=== PATIENT | female | born 1965 | race Caucasian/White ===

== ENCOUNTER 2019-07-06 05:46 | Day surgery (SDC) | payer MEDICAID ==
[2019-07-06] MEDS ORDERED: Midazolam 1 MG/ML 2 ML SDV IV ONE ×6 (05:47→07:00)
[2019-07-06] MEDS ORDERED: fentaNYL 100 MCG/2 ML SDV IV ONE ×3 (05:47→06:54)
[2019-07-06] MEDS ORDERED: fentaNYL 100 MCG/2 ML SDV ONE (05:51)
[2019-07-06] MEDS ORDERED: Midazolam 1 MG/ML 2 ML SDV ONE (05:51)
[2019-07-06] MEDS ORDERED: Sodium Chloride 0.9% 10 ML Syringe FLUSH PRN (06:00)
[2019-07-06] MEDS ORDERED: Dextrose 5%-0.45% NaCl 1,000 ML IV SCH (06:00)
[2019-07-06 10:19] VITALS: BP 110/66; PULSE 57
--- NOTE | 2019-07-06 10:49 | OR ---
DATE: 07/06/2019 PROCEDURE DONE: Total colonoscopy. INSTRUMENT USED: CF-TD135T Olympus video colonoscope. PREMEDICATIONS: Fentanyl 100 mcg intravenous, Versed 4 mg intravenous, nasal O2 cannula. The procedure was done under pulse oximetry, BP recording, and monitoring tech. INDICATION: The patient with Hemoccult positive stools. Colonoscopic examination is done for detection of any polypoid lesions and removal, endoscopic hemostasis therapy if needed. DESCRIPTION OF PROCEDURE: Initial rectal exam was unremarkable. Rigid anoscopy showed small internal hemorrhoids without bleeding from them. The colonoscope was passed with ease up to the ileocecal area. Photographs were taken of the normal-appearing cecum identified by double-bulged ileocecal folds. No bleeding was noted from any of the visualized areas at the commencement of the examination. The bowel preparation was found to be adequate, class 3 in all the regions. No stricture. No vascular ectasia. No large isolated ulcerations seen. No evidence of diffuse inflammatory bowel disease in the form of friability, contact bleeding, or ulcerations. No polyp or tumor mass identified. Probing the proximal sides of folds and flexures using adequate distention and clearing up the stool material, withdrawal of the scope was made, cecum to rectum time over 6 minutes. No bleeding was noted from any of the visualized areas at the completion of examination. IMPRESSION: Internal hemorrhoids. The patient tolerated the procedure well. [facility] /[id number]
--- NOTE | 2019-07-06 11:21 | PN ---
DATE: 07/06/2019 Had some diaphoresis after coming here. Admits to having these kind of spells periodically, infrequently. No chest pain, palpitations, or exertional dyspnea. No cough or expectoration. No recent documented fever at home. No chills. Feels much better now compared to 30 minutes ago. No headache. Denies any syncopal episodes recently. No cough or expectoration. Stable vital signs. Alert and oriented. Not short of breath at rest. Lungs clear. S1, S2, regular. Abdomen obese, soft. No lateralizing neurlogical signs noted. No pitting edema of the legs noted. INVESTIGATIONS: Accu-Chek 109. PLAN: Chart reviewed. Medication list scanned. The patient to follow up with her healthcare providers as to any further evaluation and management of infrequent diaphoretic spells. The patient acceptable to proceed with colonoscopy today. [facility] /[id number]
== END 2019-07-06 09:13 | disposition home or self-care (01) ==
LOC: DL.ENDO 05:46
PROVIDERS: ATTEND Internal Medicine Gastroenterology
DX: K64.8 Other hemorrhoids (principal)
CPT/HCPCS: 45378; 82962; J7042; G0121; J2250; J3010

== ENCOUNTER 2022-09-09 08:56 | Emergency (ER) | payer MEDICARE, MEDICAID ==
[2022-09-09 09:09] VITALS: BP 102/83; PULSE 67
== END 2022-09-09 10:20 | disposition home or self-care (01) ==
LOC: DL.ED 08:56
DX: S66.912A Strain of unspecified muscle, fascia and tendon at wrist and hand level, left hand, initial encounter (principal); J03.90 Acute tonsillitis, unspecified; E78.00 Pure hypercholesterolemia, unspecified; I10 Essential (primary) hypertension; K21.9 Gastro-esophageal reflux disease without esophagitis; M19.90 Unspecified osteoarthritis, unspecified site; E66.9 Obesity, unspecified; Z68.42 Body mass index [BMI] 45.0-49.9, adult; Z79.899 Other long term (current) drug therapy
CPT/HCPCS: 73110-LT; 87081; 87430; 99283